=== PATIENT | male | born 1955 | race Caucasian/White ===

== ENCOUNTER 2019-11-19 05:04 | Emergency (ER) | payer MEDICARE ==
[~2019-11-19] VITALS: Ht 198.1 cm; Wt 104.3 kg
[~2019-11-19 05:04] MED LIST: ASPI81CH PO; ATEN100; CEPH500 PO; CHOL10002; Flax Oil1000 MG PO; LISI5 PO; NIAC500ER PO; TRAMADOL HCL E100 MG PO
[2019-11-19 05:45] LABS: BASOPHILS ABSOLUTE AUTO 0.03 K/mm3 (0.00-0.23); BASOPHILS PERCENT AUTO 0 % (0-2); EOSINOPHILS ABSOLUTE AUTO 0.36 K/mm3 (0.00-0.68); EOSINOPHILS PERCENT AUTO 3 % (0-6); Hematocrit 50.9 % (37.0-53.0); Hemoglobin 17.3 g/dL (13.5-17.5); IMMATURE GRAN ABSOLUTE AUTO 0.03 K/mm3 (0.00-0.10); IMMATURE GRAN PERCENT AUTO 0 % (0-1); LYMPHOCYTES ABSOLUTE AUTO 1.76 K/mm3 (0.84-5.20); LYMPHOCYTES PERCENT AUTO 14 % (21-46); MONOCYTES PERCENT AUTO 7 % (4-13); Mean Corpuscular HGB 33.9 pg (26.0-34.0); Mean Corpuscular Volume 100 fL (80-100); Mean Platelet Volume 10.5 fL (9.1-12.4); NEUTROPHILS ABSOLUTE AUTO 9.38 K/mm3 (1.96-9.15); NEUTROPHILS PERCENT AUTO 75 % (41-73); Platelet Count 138 K/mm3 (150-400); RDW Coefficient Variation 13.4 % (11.7-14.2); RDW Standard Deviation 49.8 fL (35.1-46.3); Red Blood Cell Count 5.11 M/mm3 (4.30-5.90); White Blood Cell Count 12.46 K/mm3 (4.00-11.30)
[2019-11-19 05:58] LABS: Alanine Aminotransfer (ALT/SGP 23 U/L (12-78); Albumin, Blood 3.6 g/dL (3.4-5.0); Albumin/Globulin Ratio 0.8 (0.8-1.8); Alk Phos 87 U/L (50-136); Anion Gap 6 mmol/L (6-16); Aspartate Aminotrans (AST/SGOT 35 U/L (12-37); Bilirubin, Total 2.4 mg/dL (0.1-1.0); Blood Urea Nitrogen 13 mg/dL (8-24); Bun/Creatinine Ratio 16.8 (12.0-20.0); CO2, Blood 24 mmol/L (21-32); Calcium, Blood 9.9 mg/dL (8.5-10.1); Chloride, Blood 111 mmol/L (98-108); Creatinine, Blood 0.78 mg/dL (0.60-1.20); Globulin, Blood 4.6 g/dL (2.2-4.0); Glomerular Filtration Rate >60 (60-); Glucose, Blood 121 mg/dL (70-99); Magnesium, Blood 1.8 mg/dL (1.6-2.4); Potassium, Blood 4.1 mmol/L (3.5-5.5); Sodium, Blood 141 mmol/L (136-145); Total Protein, Blood 8.2 g/dL (6.4-8.2)
[2019-11-19 06:35] LABS: Source, Urine Voided
[2019-11-19 06:43] LABS: Appearance, Urine Clear (Clear); Bilirubin, Urine Neg (Neg); Blood, Urine Neg (Neg); Color, Urine Yellow (P-Yellow); Glucose Qualitative, Urine Neg (Neg); Ketones, Urine Neg (Neg); Leukocyte Esterase, Urine Neg (Neg); Nitrite, Urine Neg (Neg); Protein, Urine Neg (Neg); Specific Gravity, Urine 1.015 (1.003-1.022); Urobilinogen, Urine NORM (Normal)
[2019-11-19] MEDS ORDERED: Norco 5-325 Ta1 EACH PO (09:05)
[2019-11-19] MEDS ORDERED: ONDA4ODT MM (09:05)
[2019-11-19] MEDS ORDERED: Cipro500 MG PO (09:42)
[2019-11-19] MEDS ORDERED: Flagyl500 MG PO (09:42)
== END 2019-11-19 09:45 | disposition home or self-care (01) ==
LOC: ER 05:04
PROVIDERS: Emergency Medicine
DX: K57.32 Diverticulitis of large intestine without perforation or abscess without bleeding (principal); I10 Essential (primary) hypertension; I48.91 Unspecified atrial fibrillation; Z79.899 Other long term (current) drug therapy; Z79.82 Long term (current) use of aspirin; Z87.891 Personal history of nicotine dependence
CPT/HCPCS: 36415; 74176; 80053; 81003; 83690; 83735; 85025; 96361-59; 96374-59; 96375-59; 99284-25; A9270-GY; J1170; J2405; J7030

== ENCOUNTER 2022-09-01 23:03 | Inpatient (IN) | payer MEDICARE ==
[~2022-09-01] VITALS: Ht 195.6 cm; Wt 104.3 kg
[~2022-09-01 23:03] MED LIST changes: -ATEN100; +ATEN100 PO; +Cipro500 MG PO; +Flagyl500 MG PO; +Norco 5-325 Ta1 EACH PO; +ONDA4ODT MM
[2022-09-01 23:36] LABS: BASOPHILS ABSOLUTE AUTO 0.02 K/mm3 (0.00-0.23); BASOPHILS PERCENT AUTO 0 % (0-2); EOSINOPHILS ABSOLUTE AUTO 0.13 K/mm3 (0.00-0.68); EOSINOPHILS PERCENT AUTO 1 % (0-6); Hematocrit 42.8 % (37.0-53.0); Hemoglobin 14.9 g/dL (13.5-17.5); IMMATURE GRAN ABSOLUTE AUTO 0.03 K/mm3 (0.00-0.10); IMMATURE GRAN PERCENT AUTO 0 % (0-1); LYMPHOCYTES ABSOLUTE AUTO 1.61 K/mm3 (0.84-5.20); LYMPHOCYTES PERCENT AUTO 14 % (21-46); MONOCYTES ABSOLUTE AUTO 1.23 K/mm3 (0.16-1.47); MONOCYTES PERCENT AUTO 11 % (4-13); Mean Corpuscular HGB 34.7 pg (26.0-34.0); Mean Corpuscular HGB Conc 34.8 g/dL (31.5-36.5); Mean Corpuscular Volume 100 fL (80-100); Mean Platelet Volume 10.2 fL (9.1-12.4); NEUTROPHILS PERCENT AUTO 74 % (41-73); Platelet Count 142 K/mm3 (150-400); RDW Coefficient Variation 14.3 % (11.7-14.2); RDW Standard Deviation 53.3 fL (35.1-46.3); Red Blood Cell Count 4.29 M/mm3 (4.30-5.90); White Blood Cell Count 11.72 K/mm3 (4.00-11.30)
[2022-09-01 23:54] LABS: Albumin, Blood 3.3 g/dL (3.4-5.0); Albumin/Globulin Ratio 0.8 (0.8-1.8); Bilirubin, Total 1.5 mg/dL (0.1-1.0); Bun/Creatinine Ratio 17.2 (12.0-20.0); Calcium, Blood 9.4 mg/dL (8.5-10.1); Creatinine, Blood 0.99 mg/dL (0.60-1.20); Total Protein, Blood 7.3 g/dL (6.4-8.2)
[2022-09-02 06:27] LABS: Influenza A, PCR NEGATIVE (NEGATIVE); Influenza B, PCR NEGATIVE (NEGATIVE); Resp Syncytial Virus, PCR NEGATIVE (NEGATIVE); SARS-Cov-2 (COVID-19) PCR, MMC NEGATIVE (NEGATIVE)
[2022-09-02] MEDS ORDERED: TAMS.4ER PO (08:12)
--- NOTE | 2022-09-02 12:02 | NUR ---
ASSUMED CARE: REPORT RECIEVED FROM ABISAI ANGEL. PT CURRENTLY ON 2L O2, SATTING LOW 90S WITH THIS. AFIB ON TELE WITH HR IN 80S. STATES LEFT RIB PAIN. PAIN MEDS GIVEN PER ORDERS. NO ACUTE NEEDS OR CONCERNS AT THIS TIME.
--- NOTE | 2022-09-02 19:25 | NUR ---
ADMIT NOTE PATIENT NEW ADMIT TO UNIT FROM ER FOR DX PNEUMONIA. ALERT AND ORIENTED, SBA TO USE BSC. 2L O2 VIA NC. DESATS INTO 80S WITH EXERTION. LS CRACKLES IN BASES. NSR IN 80S ON TELE. TOLERATING REGULAR DIET AND LIQUIDS. MEDICATED FOR CHEST/RIB PAIN WITH TYLENOL. VOIDING WELL. REPORT GIVEN TO FULL STACK NET DEVELOPER RN.
--- NOTE | 2022-09-03 03:01 | NUR ---
CALLED HOSPITALIST INFORMED HER THAT PT IS BACK IN AFIB @ 143 BPM (UP TO 150'S BPM). SMALL FLUID BOLUS ORDERED, SEE EMAR. FLUID BOLUS INFUSING. PAPER RHYTHM STRIP IN CHART. CHARGE INFORMED. WE WILL RECHECK VITALS WHEN BOLUS COMPLETE. TELEMETRY IS MONITORING. PT REQUESTS TYLENOL FOR CHRONIC BACK PAIN AT THIS TIME. MEDICATION ADMINISTERED.
--- NOTE | 2022-09-03 05:25 | NUR ---
HOSPITALIST CALLED INFORMED CHARGE OF HR NOT IMPROVED FOLLOWING BOLUS. ORDER RECEIVED FOR IV METOPROLOL. MEDICATION ADMINISTERED.
--- NOTE | 2022-09-03 05:40 | NUR ---
SHIFT SUMMARY ADMITTED FOR PNEUMONIA. FULL CODE. PLAN IS FOR IV ANTIB RX AND MONITOR LABS. HE DID SWITCH BACK INTO AFIB DURING THIS SHIFT. TELEMETRY IS MONITORING. 250 ML FLUID BOLUS GIVEN. IV METOPROLOL GIVEN. 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 HE REMOVED HIS O2 DURING SHIFT. HE IS SATURATING AT 92% ON RA. HE IS ON RA AT HOME. TRAMADOL AND TYLENOL GIVEN FOR CHRONIC BACK PAIN
[2022-09-03 05:55] LABS: Hematocrit 45.1 % (37.0-53.0); Hemoglobin 15.8 g/dL (13.5-17.5); Mean Corpuscular HGB 34.9 pg (26.0-34.0); Mean Corpuscular Volume 100 fL (80-100); Platelet Count 131 K/mm3 (150-400); RDW Standard Deviation 52.2 fL (35.1-46.3); Red Blood Cell Count 4.53 M/mm3 (4.30-5.90)
[2022-09-03 06:22] LABS: Bun/Creatinine Ratio 12.6 (12.0-20.0); Calcium, Blood 9.2 mg/dL (8.5-10.1); Creatinine, Blood 0.79 mg/dL (0.60-1.20); Potassium, Blood 3.9 mmol/L (3.5-5.5)
--- NOTE | 2022-09-03 18:47 | NUR ---
SUMMARY- PT A/O X3-4- FORGETFUL TO DETAILS. AMBULATES INDEPENDANT TO THE BATHROOM. LUNGS CLEAR WITH FAINT CRACKLES IN L BASE AND DIM BILAT. PT ON TELE HAS BEEN IN A-FIB SINCE O140 THIS AM. RATE THIE AM 130'S, OCC TOUCHES INTO 140-160'S, MOSTLY WITH ACTIVITY. PT DENIES ANY SYMPTOMS OF ELEVATED HR. DENIES CP, NO DIZZINESS. GAVE SCHEDULED ATENALOL 25MG THIS AM WITH MIN EFFECT. NOTIFIED DR BARFIELD OF CONT ELEVATION OF HR. ORDER FOR PRN METOPROLOL 5MG GIVEN 1430, MIN EFFECT. PT CONT MOSTLY A-FIB 110-120'S, MULT CALLS OF PT'S RATE RIDING INTO 130-140'S, OCC BRIEF PERIOD OF RATE INTO 160'S. DR BARFIELD ORDERED ATENOLOL 50MG BID. PT ON ROOM AIR. SATS 94-96% EVEN DIRECTLY CHECKING AFTER ACTIVITY, STAYS 96%, MIN SOB. TOLERATING FOOD AND FLUIDS. USING URINAL. AT BEDSIDE MOST OF THE DAY. SUPPORTIVE IN CARE.
--- NOTE | 2022-09-03 21:08 | NUR ---
AFIB/TACHY TELEMETRY INFORMS ME THAT THE PT'S HR HAS RISEN TO AFIB IN 130'S BPM. SCHEDULED PO 50 MG ATENELOL GIVEN. SEE EMAR TELEMETRY CALLED AGAIN TO INFORM ME THAT HR HAS INCREASED TO 170'S. PRN 5 MG IV METOPROLOL GIVEN. SEE EMAR TELEMETRY INFORMS ME ON MY FOLLOW UP CALL THAT HR IS NOW BACK DOWN TO AFIB AT 113-120'S BPM.
--- NOTE | 2022-09-03 23:04 | NUR ---
PT STATUS (NEWLY INCREASED DOSAGE) SCHEDULED ATENOLOL PO GIVEN THIS SHIFT. PRN IV METOPROLOL GIVEN THIS SHIFT. SEE EMAR AND PREVIOUS NOTES. TELEMETRY CALLED JUST NOW TO INFORM ME THAT THE HEART RATE IS STARTING TO TREND BACK UPWARD. AFIB @ 125-135 BPM ON AVERAGE NOW. NO S/SX. WILL CONTINUE TO MONITOR.
--- NOTE | 2022-09-04 04:24 | NUR ---
SHIFT SUMMARY ADMITTED FOR HYPOXIA/PNEUMONIA. FULL CODE. HE WILL DC HOME W/ WHEN STABLE. TELEMETRY: AFIB @ 115. PERIODS OF TACHY AFIB REPORTED, SEE PREVIOUS NOTES. RT PERFORMING SLEEP STUDY PRE-ALATORRE. HE SEES DR YOON OUTPT FOR HEMOCHROMATOSIS. HX OF AN AAA W/MURAL THROMBOSIS. STANDBY ASSIST - BRP. HE IS A&O X4. IV ANTIB RX ARE SCHEDULED. HX OF CHRONIC BACK PAIN, CIRRHOSIS. HE IS ON ELIQUIS.
[2022-09-04 05:15] LABS: BASOPHILS ABSOLUTE AUTO 0.02 K/mm3 (0.00-0.23); BASOPHILS PERCENT AUTO 0 % (0-2); EOSINOPHILS ABSOLUTE AUTO 0.09 K/mm3 (0.00-0.68); EOSINOPHILS PERCENT AUTO 1 % (0-6); Hematocrit 49.3 % (37.0-53.0); Hemoglobin 17.3 g/dL (13.5-17.5); IMMATURE GRAN ABSOLUTE AUTO 0.04 K/mm3 (0.00-0.10); IMMATURE GRAN PERCENT AUTO 0 % (0-1); LYMPHOCYTES ABSOLUTE AUTO 2.01 K/mm3 (0.84-5.20); LYMPHOCYTES PERCENT AUTO 16 % (21-46); MONOCYTES ABSOLUTE AUTO 1.35 K/mm3 (0.16-1.47); MONOCYTES PERCENT AUTO 11 % (4-13); Mean Corpuscular HGB 34.6 pg (26.0-34.0); Mean Corpuscular HGB Conc 35.1 g/dL (31.5-36.5); Mean Corpuscular Volume 99 fL (80-100); Mean Platelet Volume 10.9 fL (9.1-12.4); NEUTROPHILS ABSOLUTE AUTO 9.13 K/mm3 (1.96-9.15); NEUTROPHILS PERCENT AUTO 72 % (41-73); Platelet Count 174 K/mm3 (150-400); RDW Coefficient Variation 13.7 % (11.7-14.2); RDW Standard Deviation 50.4 fL (35.1-46.3); White Blood Cell Count 12.64 K/mm3 (4.00-11.30)
[2022-09-04 05:36] LABS: Bun/Creatinine Ratio 15.6 (12.0-20.0); Calcium, Blood 9.2 mg/dL (8.5-10.1); Creatinine, Blood 0.84 mg/dL (0.60-1.20); Potassium, Blood 3.9 mmol/L (3.5-5.5)
[2022-09-04 09:57] LABS: Percent Saturation 37.6 % (20.0-50.0)
--- NOTE | 2022-09-04 16:53 | NUR ---
AFIB THROUGH OUT SHIFT. PRN IV METOPROLOL GIVEN. BP THEN ON THE LOW END. CARDIAZEM WAS PRESCRIBED TODAY. PROVIDER REVIEWED VITALS AND MEDICATIONS. SHE WILL PLACE PARAMETERES ON METOPROLOL AND START ORAL DIG TO ATTEMPT TO MANAGE AFIB. PATIENT IS ASYMPTOMATIC DURING THE RATE CHANGES. SPUTUM SAMPLE COLLECTED AND SENT FOR CULTURE. SPUTUM DID HAVE STREAKS OF BLOOD. PATIENTS PAIN RATING THROUGH OUT SHIFT IS ABOUT 2- WELL MANAGED WITH ULTRAM.
--- NOTE | 2022-09-04 20:45 | NUR ---
VERIFIED 210O DOSE OF DILTIAZEM IS WITHIN PARAMETERS FOR ADMINISTRATION. PER PHARMACY OKAY TO ADMINISTER 2100 DOSE AFTER FIRST TIME DOSE AT 1414.
[2022-09-05 04:36] LABS: BASOPHILS ABSOLUTE AUTO 0.02 K/mm3 (0.00-0.23); BASOPHILS PERCENT AUTO 0 % (0-2); EOSINOPHILS ABSOLUTE AUTO 0.16 K/mm3 (0.00-0.68); EOSINOPHILS PERCENT AUTO 2 % (0-6); Hematocrit 48.3 % (37.0-53.0); Hemoglobin 16.7 g/dL (13.5-17.5); IMMATURE GRAN ABSOLUTE AUTO 0.02 K/mm3 (0.00-0.10); IMMATURE GRAN PERCENT AUTO 0 % (0-1); LYMPHOCYTES ABSOLUTE AUTO 1.84 K/mm3 (0.84-5.20); LYMPHOCYTES PERCENT AUTO 18 % (21-46); MONOCYTES ABSOLUTE AUTO 1.01 K/mm3 (0.16-1.47); MONOCYTES PERCENT AUTO 10 % (4-13); Mean Corpuscular HGB 34.4 pg (26.0-34.0); Mean Corpuscular HGB Conc 34.6 g/dL (31.5-36.5); Mean Corpuscular Volume 100 fL (80-100); Mean Platelet Volume 10.2 fL (9.1-12.4); NEUTROPHILS ABSOLUTE AUTO 6.99 K/mm3 (1.96-9.15); NEUTROPHILS PERCENT AUTO 70 % (41-73); Platelet Count 183 K/mm3 (150-400); RDW Coefficient Variation 13.7 % (11.7-14.2); RDW Standard Deviation 50.4 fL (35.1-46.3); Red Blood Cell Count 4.85 M/mm3 (4.30-5.90); White Blood Cell Count 10.04 K/mm3 (4.00-11.30)
[2022-09-05 04:56] LABS: Bun/Creatinine Ratio 20.6 (12.0-20.0); Calcium, Blood 8.8 mg/dL (8.5-10.1); Creatinine, Blood 1.02 mg/dL (0.60-1.20); Potassium, Blood 3.9 mmol/L (3.5-5.5)
--- NOTE | 2022-09-05 06:10 | NUR ---
NOC SHIFT SUMMARY: PATIENT AOX4 DURING SHIFT THIS EVENING. DENIES PAIN OR NAUSEA AT BEGINNING OF SHIFT. REFUSED 0000 DOSE OF TRAMADOL STATING THAT "IT KEEPS ME AWAKE" PT ACCEPTED AM DOSE OF TRAMADOL.PT REMOTE TELEMETRY HR REMAINS AFIB 100- 120BPM BLOOD PRESSURE WNL SEE CHART. PT AFEBRILE. PT. VOIDING CHASE COLORED URINE. PROVIDED TELEPHONE UPDATE OF PATIENTS CONDITION TO GURPREET PATIENT'S 09/04 @ 1020. GURPREET WILL BE VISITING IN THE AM TO SPEAK WITH MD. PATIENT INDEPENDENT IN ROOM.
--- NOTE | 2022-09-05 16:03 | NUR ---
TELE CALLED. STATES INCREASED PVC'S FROM ABOUT 11 PER MIN TO 15-20/MIN/ CONTINUES TO BE AFIB/FLUTTER AT 116. DR TO PLACE ORDERS FOR K+
--- NOTE | 2022-09-05 16:55 | NUR ---
PT DISCHARGE REVIEWED WITH PT HE VERBALIZED UNDERSTANDING MEDS AND INST. IV PULLED INTACT X2, TELE REMOVED. PT PENDING RIDE FROM AIRAM.
--- NOTE | 2022-09-05 18:42 | NUR ---
PT QUITE PLEASANT AND COOP. STATES DOES NOT FEEL NOTICABLY BAD WHEN H/R INCREASES. STARTED OUT MID 130'S AND INCREASED TO 150'S PER TELE THIS AM. MEDS GIVEN AND DROPPED BACK TO [address] BATES CONSULTED CARDIO FOR ASSISTANCE. ADJUSTED SOME MEDS FOR TONITE. IN TO SEE TODAY MUCH OF DAY. NO OTHER CONCERNS NOTED TODAY. BED IN LOW POSITION, CALL LITE IN REACH, CALLS APPROP
--- NOTE | 2022-09-06 06:41 | NUR ---
SHIFT SUMMARY - NOC PATIENT AOX4 O2 RA VSS PT BLOOD PRESSURE WNL DURING SHIFT. HR AVERAGE 80-100 BPM DURING SHIFT. PT. HR SPIKES TO 130 WITH AMBULATION - ONE TIME DURING SHIFT. PT ASYMPTOMATIC WITH HR INCREASE. PT. VOIDING WELL INDEP TO BR.
--- NOTE | 2022-09-06 19:59 | NUR ---
SHIFT SUMMARY: PT A&O X4, PLEASANT AND HAPPY. PT HAS HAD EPSIDODES OF INCREASED HR WITH MOBILITY. PT RECEVIED MORNING MEDICATIONS WITH NO NEW EPISODES OF INCREASE HR. PROVIDER ORDER NEW IV DIGOXIN, 2 DOSES GIVEN WITH NO ADVERSE EFFECTS. PT HR STABLE THROUGHOUT SHIFT. PT REQUESTED TRAMADOL BE CHANGED TO TWICE A DAY 0800,1400 AND STOOL SOFTNER PRN. PT AT BEDSIDE MAJORITY OF THE SHIFT. PT ABLE TO AMBULATE IN THE ROOM WITH NO DIZZINESS, HEART PALPIATATIONS OR CHEST PAIN. PT IN BED WITH CALL LIGHT WITHIN REACH.
--- NOTE | 2022-09-07 00:52 | NUR ---
HR 58 TO MID 60'S AT REST IN BED. PT. OOB HR INCREASED SLIGHTLY TO MID 70s WHEN STANDING TO USE URINAL. PATIENT ASYMTOMATIC DENIES DIZZINESS, SOB, PALPITATIONS. SEE TELEMETRY.
--- NOTE | 2022-09-07 05:31 | NUR ---
SHIFT SUMMARY - NOC PT RESTED DURING SHIFT. HR 60-70s WITH OCCASIONAL DIP 58 NEAR THE START OF THE SHIFT. PT ABLE TO AMULATE IN ROOM WITH NO DIZZINESS, LIGHTHEADNESS OR PALPITATIONS. PT. DENIES PAIN.
[2022-09-07 05:39] LABS: Bun/Creatinine Ratio 20.2 (12.0-20.0); Calcium, Blood 8.9 mg/dL (8.5-10.1); Creatinine, Blood 0.94 mg/dL (0.60-1.20); Magnesium, Blood 2.1 mg/dL (1.6-2.4); Potassium, Blood 4.2 mmol/L (3.5-5.5)
[2022-09-07] MEDS ORDERED: ELIQUIS5 M2 PO (11:43)
[2022-09-07] MEDS ORDERED: METO50 PO (11:43)
[2022-09-07] MEDS ORDERED: DIGOX125 MC1 PO (11:44)
[2022-09-07] MEDS ORDERED: DILT180 PO (11:44)
[2022-09-07] MEDS ORDERED: VISBIOME 112.51 EACH PO (11:45)
[2022-09-07] MEDS ORDERED: AMOCLA875 PO (11:45)
--- NOTE | 2022-09-07 12:43 | NUR ---
DISCHARGE PT A&OX4 @ TIME OF DC, @ BEDSIDE. TELE DC'ED, IV DC'ED. HARD SCRIPT OF ELIQUIS PROVIDED TO SPOUSE W/ COUPON-OTHER MEDS FAXED TO [facility]. TOLERATING PO INTAKE, VSS. ESCORTED OUT WC BY GAS DISPATCHER, SPOUSE TO PROVIDE TRANSPORT. DENIES CP
== END 2022-09-07 12:23 | disposition home or self-care (01) | DRG 194 ==
LOC: ER 23:03 → ERHOLD 09-02 11:22 → MEDS 09-02 11:22
PROVIDERS: Emergency Medicine; Internal Medicine; Nurse Practitioner Acute Care; ADMIT Internal Medicine
DX: J18.9 Pneumonia, unspecified organism (principal); I48.19 Other persistent atrial fibrillation; I48.92 Unspecified atrial flutter; I10 Essential (primary) hypertension; Z20.822 Contact with and (suspected) exposure to COVID-19; R09.02 Hypoxemia; Z28.21 Immunization not carried out because of patient refusal; I71.40 Abdominal aortic aneurysm, without rupture, unspecified; E83.119 Hemochromatosis, unspecified; F12.90 Cannabis use, unspecified, uncomplicated; J43.9 Emphysema, unspecified; G89.29 Other chronic pain; M54.9 Dorsalgia, unspecified; N40.0 Benign prostatic hyperplasia without lower urinary tract symptoms; K74.60 Unspecified cirrhosis of liver; F17.210 Nicotine dependence, cigarettes, uncomplicated; Z71.6 Tobacco abuse counseling; Z79.82 Long term (current) use of aspirin; Z79.899 Other long term (current) drug therapy
CPT/HCPCS: 0241U; 36415; 71045; 71275; 80048; 80053; 82728; 83540; 83550; 83605; 83690; 83735; 83880; 84145; 84443; 84484; 85025; 85027; 85379; 86140; 87040; 93005; 93010; 93306; 94640; 94664; 94760; 94762; 96374; 96375; 96375-59; 96376-59; 99285-25; A9270; J0696; J1160; J1650; J2270; J2405; J7030; Q9967

== ENCOUNTER 2025-10-28 10:38 | Inpatient (IN) | payer OTHER ==
[~2025-10-28] VITALS: Ht 195.6 cm; Wt 110.9 kg
[~2025-10-28 10:38] MED LIST changes: +AMOCLA875 PO; +DIGOX125 MC1 PO; +DILT180 PO; +ELIQUIS5 M2 PO; +METO50 PO; +TAMS.4ER PO; +VISBIOME 112.51 EACH PO
[2025-10-28 11:29] LABS: Hematocrit 48.0 % (37.0-53.0); Hemoglobin 17.2 g/dL (13.5-17.5); Mean Corpuscular HGB Conc 35.8 g/dL (31.5-36.5); Mean Corpuscular Volume 92 fL (80-100); NRBC ABSOLUTE 0.00 K/mm3 (0.00-0.02); NRBC Auto 0.0 /100 WBC (0.0-0.2); Platelet Count 115 K/mm3 (150-400); RDW Coefficient Variation 15.5 % (11.7-14.2); RDW Standard Deviation 53.0 fL (35.1-46.3)
[2025-10-28 11:47] LABS: CORONAVIRUS COVID-19 AG Negative (NEGATIVE)
[2025-10-28 11:47] LABS: Alanine Aminotransfer (ALT/SGP 39.0 U/L (12-78); Albumin, Blood 3.0 g/dL (3.4-5.0); Albumin/Globulin Ratio 0.6 (0.8-1.8); Anion Gap 15.0 mmol/L (3-11); Aspartate Aminotrans (AST/SGOT 100.0 U/L (12-37); Bilirubin, Direct 0.8 mg/dL (0.0-0.3); Bilirubin, Indirect 1.9 mg/dL (0.1-0.7); Bilirubin, Total 2.7 mg/dL (0.1-1.0); Blood Urea Nitrogen 37.0 mg/dL (8-24); CO2, Blood 19.0 mmol/L (21-32); Calcium, Blood 9.5 mg/dL (8.5-10.1); Chloride, Blood 99.0 mmol/L (98-108); Creatinine, Blood 1.36 mg/dL (0.60-1.20); Globulin, Blood 4.7 g/dL (2.2-4.0); Glucose, Blood 134.0 mg/dL (70-99); Magnesium, Blood 1.9 mg/dL (1.6-2.4); Phosphorus, Blood 2.4 mg/dL (2.5-4.9); Potassium, Blood 3.5 mmol/L (3.5-5.5); Prothrombin Time Results 13.5 Sec (9.7-11.5); Sodium, Blood 129.0 mmol/L (136-145); Total Protein, Blood 7.7 g/dL (6.4-8.2)
[2025-10-28 11:54] LABS: BAND PERCENT MAN 10 % (0-8); BASOPHILS ABSOLUTE MAN 0.00 K/mm3 (0.00-0.23); BASOPHILS PERCENT MAN 0 % (0-2); EOSINOPHILS ABSOLUTE MAN 0.00 K/mm3 (0.00-0.68); EOSINOPHILS PERCENT MAN 0 % (0-6); LYMPHOCYTES ABSOLUTE MAN 0.75 K/mm3 (0.84-5.20); LYMPHOCYTES PERCENT MAN 8 % (21-46); METAMYELOCYTE ABSOLUTE MAN 0.09 K/mm3 (0.00-0.00); METAMYELOCYTE PERCENT MAN 1 % (0-0); MONOCYTES ABSOLUTE MAN 0.47 K/mm3 (0.16-1.47); MONOCYTES PERCENT MAN 5 % (4-13); NEUTROPHILS ABSOLUTE MAN 8.13 K/mm3 (1.96-9.15); SEG NEUTROPHILS PERCENT MAN 76 % (41-73)
[2025-10-28] MEDS ORDERED: CefTRIAXone Sodium 1,000 MG in NS 50 ML IV ONE (12:10)
[2025-10-28] MEDS ORDERED: Diltiazem HCl 5 MG / ML 5ML Vial IV ONE (13:35)
[2025-10-28] MEDS ORDERED: Diltiazem HCL 125MG/D5 125ML IV SCH (14:25)
[2025-10-28] MEDS ORDERED: Prochlorperazine Edisylate 10 mg Vial IV PRN (14:30)
[2025-10-28] MEDS ORDERED: Ipratropium/Albuterol SulF 2.5-0.5MG/3 ML Amp INH SCH (14:35)
[2025-10-28] MEDS ORDERED: FLU VACC TS2025(65UP)/MF59C/PF 45 MCG/0.5 ML SYRINGE IM SCH (14:45)
[2025-10-28] MEDS ORDERED: NS 1,000 ML IV ONE (14:50)
[2025-10-28] MEDS ORDERED: NS 1,000 ML IV SCH (14:50)
[2025-10-28 17:48] LABS: Source, Urine Voided
[2025-10-28 17:56] LABS: Bilirubin, Urine Neg (Neg); Color, Urine Yellow (P-Yellow); Glucose Qualitative, Urine Neg (Neg); Ketones, Urine Neg (Neg); Leukocyte Esterase, Urine Neg (Neg); Protein, Urine 3+ (Neg); Specific Gravity, Urine 1.020 (1.003-1.022); Urobilinogen, Urine 1+ (Normal)
[2025-10-28 18:04] LABS: White Blood Cells, Urine 0-2 /hpf (0-5)
--- NOTE | 2025-10-28 18:15 | NUR ---
ADMIT/SHIFT NOTE: PT ARRIVED TO PCU AT APPROX 1550 VIA GURNEY. HE IS A/OX4 ABLE TO MAKE HIS NEEDS KNOWN. HE IS ON 7L NC TO MAINTAIN SPO2>90%. PT DECLINED WEARING BIPAP. HE IS IN AFIB WITH RATES IN THE 160S. CARDIZEM INFUSING PER EMAR. NOTIFIED OF CONTINUED RVR, DIGOXIN ORDERED AND ADMINISTERED PER EMAR. PT VOIDING VIA [place] DUE TO HR INCREASE WITH ACTIVITY. FAMILY UPDATED ON PLAN OF CARE. CALL LIGHT IN REACH
[2025-10-28 19:19] VITALS: BP 152/85
[2025-10-28 23:00] VITALS: BP 129/70
[2025-10-29 03:00] VITALS: BP 139/69
[2025-10-29 04:08] LABS: pH Blood Venous 7.51 (7.34-7.37)
[2025-10-29 04:15] LABS: Hematocrit 42.1 % (37.0-53.0); Hemoglobin 15.0 g/dL (13.5-17.5); Mean Corpuscular HGB Conc 35.6 g/dL (31.5-36.5); Mean Corpuscular Volume 92 fL (80-100); NRBC ABSOLUTE 0.00 K/mm3 (0.00-0.02); NRBC Auto 0.0 /100 WBC (0.0-0.2); Platelet Count 84 K/mm3 (150-400); RDW Coefficient Variation 15.3 % (11.7-14.2); RDW Standard Deviation 52.6 fL (35.1-46.3)
[2025-10-29 04:36] LABS: Anion Gap 8.0 mmol/L (3-11); BAND PERCENT MAN 3 % (0-8); BASOPHILS ABSOLUTE MAN 0.00 K/mm3 (0.00-0.23); BASOPHILS PERCENT MAN 0 % (0-2); Blood Urea Nitrogen 30.0 mg/dL (8-24); CO2, Blood 24.0 mmol/L (21-32); Calcium, Blood 8.4 mg/dL (8.5-10.1); Chloride, Blood 106.0 mmol/L (98-108); Creatinine, Blood 0.88 mg/dL (0.60-1.20); EOSINOPHILS ABSOLUTE MAN 0.00 K/mm3 (0.00-0.68); EOSINOPHILS PERCENT MAN 0 % (0-6); Glucose, Blood 110.0 mg/dL (70-99); LYMPHOCYTES ABSOLUTE MAN 0.21 K/mm3 (0.84-5.20); LYMPHOCYTES PERCENT MAN 3 % (21-46); MONOCYTES ABSOLUTE MAN 0.28 K/mm3 (0.16-1.47); MONOCYTES PERCENT MAN 4 % (4-13); NEUTROPHILS ABSOLUTE MAN 6.51 K/mm3 (1.96-9.15); Potassium, Blood 3.5 mmol/L (3.5-5.5); SEG NEUTROPHILS PERCENT MAN 90 % (41-73); Sodium, Blood 134.0 mmol/L (136-145)
[2025-10-29 07:46] VITALS: BP 127/81
--- NOTE | 2025-10-29 08:18 | NUR ---
ASSUMPTION NOTE THIS RN TO ASSUME CARE OF PATIENT. PATIENT IS ALERT AND ORIENTED X4 & COOPERATIVE WITH HIS CARE, IS ABLE TO MAKE NEEDS KNOWN & IS ABLE TO USE CALL LIGHT APPROPRIATELY. PATIENT IS ON TELE SHOWING AFIB WITH RATE BETWEEN 110-115, WAS GIVEN MORNING MEDICATIONS TO TRY AND HELP WITH HEART RATE. CONTINUES TO BE ON DILT DRIP AT 15ML/HR, BLOOD PRESSR STABLE WITH MAP >65. PATIENT SATTING >92% on 6 LITERS VIA HIGH FLOW NASAL CANNULA, RT TO FOLLOW UP WITH A BREATHING TREATMENT. PATIENTS CALLED AND PATIENT WAS SAT UP FOR BREAKFAST. HAS CALL LIGHT WITHIN REACH, BED IN LOWEST LOCKED POSITION & STATIN NOTHING ELSE IS NEEDED AT THIS TIME.
[2025-10-29] MEDS ORDERED: CefTRIAXone Sodium 1,000 MG in NS 100 ML IV SCH (09:00)
[2025-10-29] MEDS ORDERED: Diltiazem HCl 180 MG Cap.CD PO SCH (09:00)
[2025-10-29 10:56] VITALS: BP 103/70
--- NOTE | 2025-10-29 12:55 | NUR ---
CONSULTATION RECIEVED, REVIEWED, AND PROCESSED
[2025-10-29 12:56] VITALS: BP 108/79
--- NOTE | 2025-10-29 13:03 | NUR ---
ROUNDED: MD PAK ROUNDED & SPOKE WITH PATIENT AND THIS RN AT BEDSIDE. GAVE VERBAL ORDERS TO STOP THE FLUIDS PATIENTS INTAKE HAS BEEN GOOD. PATIENT AWARE DISCHARGE WILL MOST LIKELY HAPPEN IN A COUPLE DAYS. PATIENT IS NOW MEDICAL WITH TELE STATUS. PATIENT AWARE AND WILL BE CALLING HIS TO UPDATE HER.
[2025-10-29 17:25] VITALS: BP 112/61
--- NOTE | 2025-10-29 17:26 | NUR ---
SHIFT SUMMARY: PATIENT IS ALERT AND ORIENTED X4 & COOPERATIVE WITH HIS CARE, IS ABLE TO MAKE NEEDS KNOWN. USES CALL LIGHT APPRORIATELY. PATIENT IS NOW MEDICAL WITH TELE STATUS. DILT DRIP WAS TURNED OFF THIS MORNING AFTER BEING GIVEN AM MEDICATIONS AND HEART RATE HAS BEEN AVERAGNG IN THE 90'S CONTINUES TO BE IN AFIB. SATTING >92% on 4-7 LITERS AT TIMES. PATIENT DOES DESAT WITH MINIMAL EXERTION. WAS ABLE TO SIT AT THE EDGE OF THE BED THROUGHOUT THE SHIFT FOR MEALS, IS SLOWLY WORKING UP TO GETTING INTO THE CHAIR. PATIENT CALLED & FAMILY TODAY WITH UPDATES. PLAN WILL BE A FEW MORE DAYS WITH HOME MEDIACTIONS TO CONTINUE TO CONTROL HEART RATE AND TO WORK ON DECREASING OXYGEN DEMAND NEEDS. PATIENT IS CURRETLY SITTING AT THE EDGE OF BED, EATING DINNER,CALL LIGHT WITHIN REACH, BED IN LOWEST LOCKED POSITION & STATING NOTHING ESLE IS NEEDED AT THIS TIME.
[2025-10-29 19:36] VITALS: BP 124/74
[2025-10-30] VITALS (8 sets, daily range): BP systolic 107–152; BP diastolic 58–98
[2025-10-30 04:38] LABS: pH Blood Venous 7.50 (7.34-7.37)
[2025-10-30 04:49] LABS: BASOPHILS ABSOLUTE AUTO 0.02 K/mm3 (0.00-0.23); BASOPHILS PERCENT AUTO 0 % (0-2); EOSINOPHILS ABSOLUTE AUTO 0.00 K/mm3 (0.00-0.68); EOSINOPHILS PERCENT AUTO 0 % (0-6); Hematocrit 42.6 % (37.0-53.0); Hemoglobin 14.9 g/dL (13.5-17.5); IMMATURE GRAN ABSOLUTE AUTO 0.04 K/mm3 (0.00-0.10); IMMATURE GRAN PERCENT AUTO 1 % (0-1); LYMPHOCYTES ABSOLUTE AUTO 0.68 K/mm3 (0.84-5.20); LYMPHOCYTES PERCENT AUTO 8 % (21-46); MONOCYTES ABSOLUTE AUTO 0.57 K/mm3 (0.16-1.47); MONOCYTES PERCENT AUTO 7 % (4-13); Mean Corpuscular HGB Conc 35.0 g/dL (31.5-36.5); Mean Corpuscular Volume 93 fL (80-100); NEUTROPHILS ABSOLUTE AUTO 7.51 K/mm3 (1.96-9.15); NEUTROPHILS PERCENT AUTO 85 % (41-73); NRBC ABSOLUTE 0.00 K/mm3 (0.00-0.02); NRBC Auto 0.0 /100 WBC (0.0-0.2); Platelet Count 96 K/mm3 (150-400); RDW Coefficient Variation 15.4 % (11.7-14.2); RDW Standard Deviation 53.1 fL (35.1-46.3)
[2025-10-30 05:21] LABS: Anion Gap 9 mmol/L (3-11); Blood Urea Nitrogen 25 mg/dL (8-24); CO2, Blood 25 mmol/L (21-32); Calcium, Blood 8.3 mg/dL (8.5-10.1); Chloride, Blood 104 mmol/L (98-108); Creatinine, Blood 0.90 mg/dL (0.60-1.20); Glucose, Blood 92 mg/dL (70-99); Potassium, Blood 3.2 mmol/L (3.5-5.5); Sodium, Blood 135 mmol/L (136-145)
--- NOTE | 2025-10-30 06:20 | NUR ---
SHIFT SUMMARY: PT IS A&OX4 HE IS PLEASANT AND COOPERATIVE WITH CARE. VSS ON 7.5L HFNC, WEARS A CPAP WITH 7L BLEED IN WHILE ASLEEP. AFIB 90'S-100'S. C/O PAIN TO HIS BACK WHICH IS CHRONIC, MEDICATED WITH SCHEDULED TRAMADOL. TOLERATING A REGULAR DIET. MALE WICKING SYSTEM DRAINING ADEQUATE AMOUNTS OF CLEAR, CHASE COLORED URINE. NO BM THIS SHIFT, BRIEF IN PLACE. BED IN LOWEST POSITION, CALL LIGHT WITHIN REACH. DROPLET ISOLATION PRECAUTIONS MAINTAINED FOR INFLUENZA.
--- NOTE | 2025-10-30 07:00 | NUR ---
ASSUMPTION OF CARE: REPORT FROM BRIDGER PHILLIPS RN TO ASSUME CARE OF PT. PT RESTING IN BED WITH NO COMPLAINTS AT THIS TIME. CALL LIGHT IN REACH.
--- NOTE | 2025-10-30 07:16 | NUR ---
NOTIFIED NIGHT RESIDENT OF A POTASSIUM LEVEL OF 3.2, DR ALEGRIA STATES "I DONT SEE AN IMMEDIATE NEED FOR REPLACEMENT AT THIS TIME, I WILL PASS THAT ON TO THE DAY SHIFT."
[2025-10-30] MEDS ORDERED: DILTIAZEM 24HR360 MG PO (11:55)
[2025-10-30] MEDS ORDERED: METO25 PO (11:56)
[2025-10-30] MEDS ORDERED: TRAM50 PO (11:57)
[2025-10-30] MEDS ORDERED: Albuterol 2.5 MG/3 ML VIAL INH PRN (12:35)
--- NOTE | 2025-10-30 17:25 | NUR ---
SHIFT SUMMARY: PT A&OX4. FOLLOWS COMMANDS AND MAKES NEEDS KNOWN TO STAFF. PT GOT OUT OF BED TODAY AND SAT IN THE RECLINER WITH NO COMPLAINTS FOR MOST OF THE DAY. DENIES ANY COMPLAINTS OF CP, PRESSURE, TIGHTNESS OR SOB. VSS. HR STABLE AT THIS TIME. PT HAS BEEN USING FLUTTER VALVE THROUGHOUT THE DAY AND HAS BEEN HAVING SPUTUM PRODUCTION. STATES HES FEELING ALOT BETTER. PT WAS STRAIGHT CATHED TODAY AFTER REPORTING THAT HE FEEL PRESSURE IN HIS BLADDER AND HIS BLADDER SCAN RESULT OF >700. NO SIGNIFICANT EVENTS HAPPENED DURING THIS SHIFT. REPORT TO DEYSI RN TO ASSUME CARE OF PT.
[2025-10-30] MEDS ORDERED: Magnesium Hydroxide Conc 10 ML UDC PO PRN (20:40)
[2025-10-30] MEDS ORDERED: Polyethylene Glycol 3350 17 gm PO PRN (20:40)
[2025-10-30] MEDS ORDERED: Lactobacil 2-S.Thermo-Bifido 1 1 Cap PO SCH (21:00)
--- NOTE | 2025-10-30 23:23 | NUR ---
RECEIVED REPORT FROM ABISAI CHADWICK AT 2233.
--- NOTE | 2025-10-30 23:25 | NUR ---
2244 - PT ARRIVED FROM ED, ON DROPLET PRECAUTIONS FOR INFLUENZA. PT IS AOX4, PLEASANT AND COOPERATIVE. PT ARRIVED ON 4L O2 VIA NC, TITRATED TO 3L ONCE HE WAS SETTLED AND CONT PULSE OX SET UP. PT MAINTAINING O2 SAT >92%. ALL BELONGINGS ARE WITH THE PATIENT. FLUTTER VALVE AT BEDSIDE. PT ENCOURAGED TO USE. BED IN LOWEST POSITION, ALARM ON, CALL LIGHT WITHIN REACH.
[2025-10-31 03:31] VITALS: BP 133/78
--- NOTE | 2025-10-31 06:08 | NUR ---
SHIFT SUMMARY: PT ARRIVED TO THE UNIT AT 2244. HE IS AOX4, AMBULATES INDEPENDENTLY WITH SBA, AND IS GENERALLY VERY PLEASANT AND COOPERATIVE. ED REPORTED URINARY RETENTION AND 2X STRAIGHT CATH PRIOR TO TRANSFER. PT HAS BEEN AMBULATING TO AND FROM THE BATHROOM THIS NIGHT AND IS VOIDING CLEAR YELLOW URINE. THIS RN PERFORMED A BLADDER SCAN AT 0350; 413 ML OF URINE NOTED IN THE BLADDER POST-VOID. PT DENIES ANY PAIN, PRESSURE, OR URGENCY TO VOID AT THIS TIME AND IS RESTING COMFORTABLY IN BED. HE IS MAINTAINING O2 SATS >90% ON 3L HIGH FLOW NC. NO PAIN REPORTED THIS SHIFT, NO ACUTE CHANGES OR EVENTS. CALL LIGHT, URINAL, AND BEDSIDE TABLE WITHIN REACH.
[2025-10-31 06:23] LABS: Anion Gap 7 mmol/L (3-11); Blood Urea Nitrogen 22 mg/dL (8-24); CO2, Blood 25 mmol/L (21-32); Calcium, Blood 8.3 mg/dL (8.5-10.1); Chloride, Blood 108 mmol/L (98-108); Creatinine, Blood 0.78 mg/dL (0.60-1.20); Glucose, Blood 99 mg/dL (70-99); Potassium, Blood 3.4 mmol/L (3.5-5.5); Sodium, Blood 137 mmol/L (136-145)
[2025-10-31 07:34] VITALS: BP 135/88
[2025-10-31] MEDS ORDERED: NS 250 ML IV PRN (08:25)
[2025-10-31 11:52] VITALS: BP 123/68
[2025-10-31] MEDS ORDERED: DOXY100 PO (14:26)
[2025-10-31] MEDS ORDERED: DIGOX250 MCG PO (14:26)
[2025-10-31] MEDS ORDERED: PRED20 PO (14:27)
[2025-10-31] MEDS ORDERED: VISBIOME 112.51 EACH PO (14:27)
[2025-10-31] MEDS ORDERED: ALBU90OI INH (14:27)
[2025-10-31] MEDS ORDERED: TAMS.4ER PO (14:27)
[2025-10-31] MEDS ORDERED: CEFU500T30 PO (14:28)
[2025-10-31] MEDS ORDERED: POTA10T PO (14:29)
== END 2025-10-31 17:05 | disposition home or self-care (01) | DRG 871 ==
LOC: ER 10:38 → PCU 14:28 → MEDS 14:28 → PCU 16:13 → MEDS 10-30 22:43 → ENPENDDIS 10-31 12:52 → MEDS 10-31 17:05
PROVIDERS: Emergency Medicine; ADMIT Internal Medicine
PROC: 5A09357 Assistance with Respiratory Ventilation, Less than 24 Consecutive Hours, Continuous Positive Airway Pressure (ICD-10-PCS; 2025-10-28)
PROC: 3E02340 Introduction of Influenza Vaccine into Muscle, Percutaneous Approach (ICD-10-PCS; 2025-10-28)
PROC: 3E03329 Introduction of Other Anti-infective into Peripheral Vein, Percutaneous Approach (ICD-10-PCS; principal; 2025-10-29)
DX: A41.89 Other specified sepsis (principal); J10.00 Influenza due to other identified influenza virus with unspecified type of pneumonia; J96.01 Acute respiratory failure with hypoxia; R65.21 Severe sepsis with septic shock; I48.20 Chronic atrial fibrillation, unspecified; N17.9 Acute kidney failure, unspecified; J44.1 Chronic obstructive pulmonary disease with (acute) exacerbation; J44.0 Chronic obstructive pulmonary disease with (acute) lower respiratory infection; E87.4 Mixed disorder of acid-base balance; I10 Essential (primary) hypertension; F12.90 Cannabis use, unspecified, uncomplicated; M54.50 Low back pain, unspecified; R33.8 Other retention of urine; G89.29 Other chronic pain; N40.1 Benign prostatic hyperplasia with lower urinary tract symptoms; M19.90 Unspecified osteoarthritis, unspecified site; K74.60 Unspecified cirrhosis of liver; E83.119 Hemochromatosis, unspecified; Z23 Encounter for immunization; Z79.01 Long term (current) use of anticoagulants; Z79.2 Long term (current) use of antibiotics; Z79.899 Other long term (current) drug therapy
CPT/HCPCS: 36415; 71045; 76705; 80048; 80053; 80162; 81001; 82248; 82803; 83605; 83735; 84100; 84145; 85025; 85610; 85730; 87428-QW; 93005; 93010; 94640; 94660; 94664; 94761; 94762; 96374; 99285-25; A9270; J0696; J1160; J3480; J7030; J7050; J7120; J7512